=== PATIENT | female | born 1925 | race African-American/Black ===

== ENCOUNTER 2017-04-23 22:40 | Inpatient (IN) | payer MEDICARE, OTHER ==
[~2017-04-23] VITALS: Ht 165.1 cm; Wt 61.2 kg
[2017-04-23] MEDS ORDERED: Aspirin Baby 81mg ORAL ONE (23:30)
[2017-04-23 23:39] LABS: BASOPHILS % (AUTO) 0.9 % (0.0-2.0); EOSINOPHILS % (AUTO) 1.3 % (0.0-3.0); HEMATOCRIT 39.3 % (37.0-47.0); HEMOGLOBIN 11.9 G/DL (12.0-16.0); LYMPHOCYTES % (AUTO) 21.7 % (20.0-45.0); MEAN CORPUSCULAR VOLUME 82 FL (80-99); MONOCYTES % (AUTO) 9.3 % (1.0-10.0); NEUTROPHILS % (AUTO) 66.7 % (45.0-75.0); PLATELET COUNT 294 K/UL (150-450); RED BLOOD COUNT 4.81 M/UL (4.20-5.40); RED CELL DISTRIBUTION WIDTH 12.6 % (11.6-14.8); WHITE BLOOD COUNT 7.2 K/UL (4.8-10.8)
[2017-04-23 23:56] LABS: ANION GAP 7 mmol/L (5-15); BLOOD UREA NITROGEN 21 mg/dL (7-18); CALCIUM 8.2 MG/DL (8.5-10.1); CARBON DIOXIDE 29 MMOL/L (21-32); CHLORIDE 104 MMOL/L (98-107); POTASSIUM 3.9 MMOL/L (3.5-5.1); SODIUM 139 MMOL/L (136-145)
[2017-04-24] VITALS (7 sets, daily range): BP systolic 114–140; BP diastolic 72–83
[2017-04-24 00:09] LABS: ALANINE AMINOTRANSFERASE 17 U/L (12-78); ALBUMIN 3.8 G/DL (3.4-5.0); ALBUMIN/GLOBULIN RATIO 1.1 (1.0-2.7); ALKALINE PHOSPHATASE 87 U/L (46-116); ASPARTATE AMINO TRANSFERASE 22 U/L (15-37); BILIRUBIN,TOTAL 0.4 MG/DL (0.2-1.0); CKMB 2.6 NG/ML (0.0-3.6); CREATINE KINASE 134 U/L (26-308)
--- NOTE | 2017-04-24 01:26 | Emergency Room Report ---
History of Present Illness General Chief Complaint: Chest Pain Source: Patient, Family Member Present Illness HPI This is an 89-year-old female with no past medical history. She presents with chief complaint of chest pain has been intermittent for the last 2 weeks. Mostly epigastric area. Lasting about 10 minutes. No nausea no vomiting. No diaphoresis. No exertional component. No radiation. She felt anxious with it. Denies any other complaint. No pain now. Allergies: Coded Allergies: No Known Allergies (Unverified , 04/23/17) Patient History Past Medical History: none, see triage record, old chart reviewed Past Surgical History: none Pertinent Family History: none Social History: Denies: smoking Last Menstrual Period: NA Now: No Immunizations: other Reviewed Nursing Documentation: PMH: Agreed, PSxH: Agreed Review of Systems Eye: Denies: eye pain, blurred vision ENT: Denies: ear pain, nose congestion, throat swelling Respiratory: Denies: cough, shortness of breath Cardiovascular: Reports: chest pain, Denies: palpitations Gastrointestinal: Denies: abdominal pain, diarrhea, nausea, vomiting Musculoskeletal: Denies: back pain, joint pain Skin: Denies: rash Neurological: Denies: headache, numbness Endocrine: Denies: increased thirst, increased urine Hematologic/Lymphatic: Denies: easy bruising All Other Systems: negative except mentioned in HPI Physical Exam Vital Signs Date Time Temp Pulse Resp B/P (MAP) Pulse Ox O2 Delivery O2 Flow Rate FiO2 04/23/17 22:43 97.9 84 18 191/98 98 Room Air diagnosed with high blood pressure Sp02 EP Interpretation: reviewed, normal General Appearance: well appearing, no apparent distress, alert Head: normocephalic, atraumatic Eyes: bilateral eye PERRL, bilateral eye EOMI ENT: hearing grossly normal, normal pharynx Neck: full range of motion, supple, no meningismus Respiratory: chest non-tender, lungs clear, normal breath sounds Cardiovascular #1: regular rate, rhythm, no murmur Gastrointestinal: normal bowel sounds, non tender, no mass, no organomegaly, no bruit, non-distended Musculoskeletal: back normal, gait/station normal, normal range of motion Psychiatric: mood/affect normal Skin: warm/dry Medical Decision Making Diagnostic Impression: Primary Impression: Chest pain Qualified Codes: R07.9 - Chest pain, unspecified Additional Impression: Hypertension Qualified Codes: I10 - Essential (primary) hypertension ER Course Patient presents with chest pain. Atypical in nature. She does have risk factor in her age and her blood pressure. She is asymptomatic here. Aspirin given. Will admit for further workup. I discussed the case with Dr. Whipple who will admit. Laboratory Tests Test 04/23/17 23:09 White Blood Count 7.2 K/UL (4.8-10.8) Red Blood Count 4.81 M/UL (4.20-5.40) Hemoglobin 11.9 G/DL (12.0-16.0) L Hematocrit 39.3 % (37.0-47.0) Mean Corpuscular Volume 82 FL (80-99) Mean Corpuscular Hemoglobin 24.7 PG (27.0-31.0) L Mean Corpuscular Hemoglobin Concent 30.2 G/DL (32.0-36.0) L Red Cell Distribution Width 12.6 % (11.6-14.8) Platelet Count 294 K/UL (150-450) Mean Platelet Volume 5.6 FL (6.5-10.1) L Neutrophils (%) (Auto) 66.7 % (45.0-75.0) Lymphocytes (%) (Auto) 21.7 % (20.0-45.0) Monocytes (%) (Auto) 9.3 % (1.0-10.0) Eosinophils (%) (Auto) 1.3 % (0.0-3.0) Basophils (%) (Auto) 0.9 % (0.0-2.0) Sodium Level 139 MMOL/L (136-145) Potassium Level 3.9 MMOL/L (3.5-5.1) Chloride Level 104 MMOL/L (98-107) Carbon Dioxide Level 29 MMOL/L (21-32) Anion Gap 7 mmol/L (5-15) Blood Urea Nitrogen 21 mg/dL (7-18) H Creatinine 1.0 MG/DL (0.55-1.30) Estimat Glomerular Filtration Rate mL/min (>60) Glucose Level 122 MG/DL (74-106) H Calcium Level 8.2 MG/DL (8.5-10.1) L Total Bilirubin 0.4 MG/DL (0.2-1.0) Aspartate Amino Transf (AST/SGOT) 22 U/L (15-37) Alanine Aminotransferase (ALT/SGPT) 17 U/L (12-78) Alkaline Phosphatase 87 U/L (46-116) Total Creatine Kinase 134 U/L (26-308) Creatine Kinase MB 2.6 NG/ML (0.0-3.6) Creatine Kinase MB Relative Index 1.9 Troponin I 0.000 ng/mL (0.000-0.056) Total Protein 7.4 G/DL (6.4-8.2) Albumin 3.8 G/DL (3.4-5.0) Globulin 3.6 g/dL Albumin/Globulin Ratio 1.1 (1.0-2.7) Lab Results Impression is normal EKG Diagnostic Results Rate: normal Rhythm: NSR ST Segments: other - RBBB ASA given to the pt in ED: Yes Rhythm Strip Diag. Results Rhythm Strip Time: 01:26 EP Interpretation: yes Rate: 75 Rhythm: NSR, no PVC's, no ectopy Chest X-Ray Diagnostic Results Chest X-Ray Diagnostic Results : Chest X-Ray Ordered: Yes # of Views/Limited/Complete: 1 View Indication: Chest Pain EP Interpretation: Yes Interpretation: no consolidation, no effusion, no pneumothorax, no acute cardiopulmonary disease Impression: No acute disease Electronically Signed by: Yandel Doshi MD Last Vital Signs Date Time Temp Pulse Resp B/P (MAP) Pulse Ox O2 Delivery O2 Flow Rate FiO2 04/24/17 01:06 97.9 73 16 134/75 100 Room Air Status: improved Disposition: ADMITTED INPATIENT Condition: Serious Referrals: NON PHYSICIAN (PCP) YANDEL DOSHI M.D. Apr 24, 2017 01:26
--- NOTE | 2017-04-24 10:15 | Diagnostic Imaging Report ---
Indication: Chest pain Technique: One view of the chest Comparison: none Findings: Lungs and pleural spaces are clear. Heart size is normal. The aorta is somewhat tortuous and ectatic Impression: No acute process
[2017-04-24] MEDS ORDERED: APRISO0.375 GM PO ×2 (10:41→17:29)
[2017-04-24] MEDS ORDERED: Zolpidem 5mg tab ORAL PRN (12:30)
[2017-04-24] MEDS ORDERED: Nitroglycerin 2% oint pkt TOPIC ONE (14:00)
--- NOTE | 2017-04-24 20:30 | History and Physical Report ---
DATE OF ADMISSION: 04/24/2017 REASON FOR ADMISSION: Chest pain, possible acute coronary syndrome. HISTORY OF PRESENT ILLNESS: This is an 89-year-old female, who is very pleasant. The patient presents with chief complaint of chest pain, which has been intermittent for the past 2 weeks. No radiation of pain. The pain is intermittent. No nausea or vomiting. No shortness of breath. The patient is also anxious at present. The patient, per review and discussion, has a clear history of underlying heart disease. The patient's findings discussed and reviewed with the ER physician, and the patient is being admitted for evaluation of possible acute coronary syndrome. PAST MEDICAL HISTORY: Essentially as above. MEDICATIONS: Reviewed. ALLERGIES: Reviewed. SOCIAL HISTORY: Nonsmoker and nondrinker. The patient is retired at present. FAMILY HISTORY: Otherwise noncontributory. REVIEW OF SYSTEMS: Otherwise negative with the exception of the above. PHYSICAL EXAMINATION: GENERAL: A well-developed female, comfortable, advanced age. VITAL SIGNS: O2 saturation 100% on room air, temperature 98.3, respiratory rate 12, and blood pressure 134/72. HEENT: Fairly negative. Extraocular movements are grossly intact. Oropharynx moist. NECK: Supple. No adenopathy. LUNGS: Clear breath sounds. No rhonchi or wheezes. CARDIAC: S1 and S2. Regular rate and rhythm. Soft systolic murmur. No rubs or gallops. ABDOMEN: Soft, nontender, and nondistended. No hepatosplenomegaly. EXTREMITIES: No cyanosis, clubbing, or edema. NEUROLOGIC: Grossly nonfocal. LABORATORY DATA: All reviewed. Electrolytes fairly normal. BUN 21 and creatinine is 1. White cell count 7.2, hemoglobin 11.9, hematocrit 39, and platelets 294. The patient's initial troponin is negative. The albumin is normal. IMPRESSION: 1. Advanced age. 2. Chest pain, possible acute coronary syndrome. 3. Probable electrolyte imbalance. 4. Minimal borderline anemia. RECOMMENDATION: Supportive care. Aspirin, subcutaneous heparin, nitrates, and serial troponin. Obtain physical therapy evaluation. evaluation and obtain Cardiology evaluation for clearance. Felipe Whipple M.D. DR: STORM JOB#: [id number] CC:
[2017-04-24] MEDS: Heparin 5000 units/ml inj SUBQ SCH (21:27)
[2017-04-25] VITALS: BP 142/69
[2017-04-25] MEDS ORDERED: Lexiscan 0.4mg/5ml syringe IV ONE ×2 (02:45→09:00)
[2017-04-25 04:00] VITALS: BP 107/55
[2017-04-25 05:05] LABS: CHOLESTEROL 222 MG/DL (< 200); HDL CHOLESTEROL 82 MG/DL (40-60); TRIGLYCERIDES 53 MG/DL (30-150)
[2017-04-25 05:40] LABS: ALANINE AMINOTRANSFERASE 13 U/L (12-78); ALBUMIN 3.2 G/DL (3.4-5.0); ALBUMIN/GLOBULIN RATIO 0.9 (1.0-2.7); ALKALINE PHOSPHATASE 76 U/L (46-116); ANION GAP 8 mmol/L (5-15); ASPARTATE AMINO TRANSFERASE 20 U/L (15-37); BILIRUBIN,TOTAL 0.4 MG/DL (0.2-1.0); BLOOD UREA NITROGEN 19 mg/dL (7-18); CALCIUM 7.8 MG/DL (8.5-10.1); CARBON DIOXIDE 24 MMOL/L (21-32); CHLORIDE 106 MMOL/L (98-107); CREATININE 0.9 MG/DL (0.55-1.30); POTASSIUM 4.3 MMOL/L (3.5-5.1); SODIUM 138 MMOL/L (136-145)
[2017-04-25 08:00] VITALS: BP 139/68
[2017-04-25] MEDS ORDERED: Aspirin Baby 81mg ORAL SCH (09:00)
[2017-04-25] MEDS: Heparin 5000 units/ml inj SUBQ SCH (11:57)
[2017-04-25 12:00] VITALS: BP 149/81
--- NOTE | 2017-04-25 12:21 | General Progress Note ---
Assessment/Plan Assessment/Plan chest pain negative stress test debility weakness PLAN dc home home pt resume home meds cleared by cardiology Subjective Allergies: Coded Allergies: No Known Allergies (Unverified , 04/23/17) Subjective care noted and reviewed stress negative Objective Last 24 Hour Vital Signs Date Time Temp Pulse Resp B/P (MAP) Pulse Ox O2 Delivery O2 Flow Rate FiO2 04/25/17 11:57 70 139/68 04/25/17 08:00 70 04/25/17 08:00 98.1 87 21 139/68 94 Room Air 04/25/17 04:00 80 04/25/17 04:00 98.4 95 20 107/55 94 Room Air 04/25/17 00:00 84 04/25/17 00:00 98.0 78 20 142/69 99 Room Air 04/24/17 20:00 86 04/24/17 20:00 98.4 75 20 135/78 98 Room Air 04/24/17 17:41 80 152/96 04/24/17 16:00 98.4 75 18 140/83 95 Room Air 04/24/17 16:00 69 04/24/17 14:07 114/73 04/24/17 12:48 99.5 88 18 114/73 100 Room Air Intake and Output 04/24/17 04/25/17 19:00 07:00 Intake Total 720 ml Output Total 75 ml Balance 720 ml -75 ml Intake Oral 720 ml Output Urine Total 75 ml # Voids 2 1 # Bowel Movements 1 Laboratory Tests 04/24/17 14:00: Troponin I 0.017 04/24/17 20:20: Troponin I 0.006 04/25/17 03:00: Troponin I 0.009, Sodium Level 138, Potassium Level 4.3, Chloride Level 106, Carbon Dioxide Level 24, Anion Gap 8, Blood Urea Nitrogen 19H, Creatinine 0.9, Estimat Glomerular Filtration Rate , Glucose Level 95, Calcium Level 7.8L, Total Bilirubin 0.4, Aspartate Amino Transf (AST/SGOT) 20, Alanine Aminotransferase (ALT/SGPT) 13, Alkaline Phosphatase 76, Total Protein 6.7, Albumin 3.2L, Globulin 3.5, Albumin/Globulin Ratio 0.9L, Triglycerides Level 53 , Cholesterol Level 222H, LDL Cholesterol 123H, HDL Cholesterol 82H, Cholesterol /HDL Ratio 2.7L, Thyroid Stimulating Hormone (TSH) 1.186 Height (Feet): 5 Height (Inches): 5.00 Weight (Pounds): 135 Objective WDWN NAD clear breath sounds bilaterally without rhonchi or wheeze [id number] without MRG NABS nontender no HSM no CCE nonfocal BRENDA WELLS Apr 25, 2017 12:21
--- NOTE | 2017-04-25 12:45 | Consultation ---
DATE OF CONSULTATION: 04/24/2017 CARDIOLOGY CONSULTATION CONSULTING PHYSICIAN: Munir Montana M.D. REQUESTING PHYSICIAN: Felipe Whipple M.D. REASON FOR CONSULT: Chest pain. HISTORY OF PRESENT ILLNESS: This is a pleasant [facility] female age 89 with no prior history of known coronary disease, but has had episodes of chest pain on exertion for a number of years. Occasionally episodes occur with stress. They are very short lived and would resolve with an aspirin or herbal medications. Last evening she had an episode that was quite more significant sustained and more intense and she came to the emergency room for evaluation. Upon arrival, she was given sublingual nitroglycerin until symptoms recovered. PAST MEDICAL HISTORY: Includes colitis. MEDICATIONS: Her medications prior to admission include mesalamine and occasional aspirin. SOCIAL HISTORY: Negative for smoking, alcohol, or substance abuse. FAMILY HISTORY: Noncontributory. ALLERGIES: None known. REVIEW OF SYSTEMS: A 10-point review of systems performed all systems negative other than noted above. PHYSICAL EXAMINATION: GENERAL: The patient is well developed, well nourished, in no distress. VITAL SIGNS: Blood pressure ranging from 114/73 to 152/96, heart rate 60 to 75, respiratory rate 18, and afebrile. HEENT: Normocephalic and atraumatic. Conjunctivae pink. Oropharynx clear. NECK: Supple. Jugular venous pressure normal. LUNGS: Clear. CARDIAC: Regular rhythm and rate. Normal S1 and S2 with no murmur, rub, or gallop. ABDOMEN: Soft, nontender. No guarding. No rebound. EXTREMITIES: No edema. NEUROLOGIC: Nonfocal 2+ distal pulses. DIAGNOSTIC AND LABORATORY DATA: EKG, sinus rhythm, no acute abnormalities. Chest x-ray, no acute process. Troponin negative. IMPRESSION: 1. Acute coronary syndrome. 2. History of colitis. PLAN: 1. Cardiac monitoring. 2. Antiplatelet therapy with aspirin. 3. Noninvasive assessment of coronary flow reserve to help guide long-term medical management. 4. Consider cardiac catheterization in the presence of left ventricular dysfunction with multi-vessel disease only. 5. Check lipid panel. Munir Montana M.D. DR: YANIRA JOB#: [id number] CC:
[2017-04-25] MEDS ORDERED: Tubing IV Secondary IV ONE (14:41)
[2017-04-25] MEDS ORDERED: D5NS 1000ml IV ONE (14:41)
--- NOTE | 2017-04-25 20:30 | Progress Note ---
DATE: 04/25/2017 CARDIOLOGY PROGRESS NOTE SUBJECTIVE: The patient is seen and evaluated. No chest pain. No shortness of breath. Troponin is negative. Blood pressure well controlled. Monitored rhythm sinus with right bundle-branch block. OBJECTIVE: NECK: Supple. LUNGS: Clear. CHEST: Chest wall without tenderness. CARDIAC: Regular rhythm and rate. Normal S1 and S2 with a fourth heart sound. ABDOMEN: Soft and nontender. EXTREMITIES: No edema. LABORATORY AND DIAGNOSTIC DATA: Dobutamine stress test was performed by [place] and results revealed normal ejection fraction at rest and stress with augmentation of all oquendo, low likelihood for any flow-limiting coronary artery disease. IMPRESSION: 1. Anginal syndrome. 2. Microvascular coronary artery disease. 3. Generalized atherosclerosis. 4. Right bundle-branch block of no clinical significance. 5. History of colitis. PLAN: 1. Stable for outpatient followup. 2. No additional cardiovascular therapy or interventions indicated. 3. Maintain aspirin prophylaxis. 4. Outpatient Cardiology followup offered. Munir Montana M.D. DR: JERSON JOB#: [id number] CC:
--- NOTE | 2017-04-29 08:55 | Discharge Summary ---
Discharge Summary Hospital Course Date of Admission Apr 24, 2017 at 00:05 Date of Discharge Apr 25, 2017 at 14:42 Admitting Diagnosis CHEST PAIN HPI Tatyana Milligan is a 89 year old female who was admitted on Apr 24, 2017 at 00:05 for Chest Pain Hospital Course dc summary #[id number] Discharge Discharge Disposition Patient was discharged to Home with Home Health(06) Discharge Diagnoses: Discharge Instructions Discharge Instructions Special Instructions I have been assigned to complete a D/C Summary on this account. I was not involved in the patient management Ml Powers NP (Vanchtein) Apr 29, 2017 08:55
--- NOTE | 2017-04-30 | Discharge Summary 2 SIG ---
DATE OF ADMISSION: 04/24/2017 DATE OF DISCHARGE: 04/25/2017 REASON FOR ADMISSION: 89-year-old female with history of colitis, presented with chest pain for 2 weeks, which she described as intermittent with no radiation, lasting about 10 minutes, and mainly located in the epigastric area. The patient denied nausea, vomiting, shortness of breath, and diaphoresis. The patient felt anxious about pain Upon evaluation in the emergency department, blood pressure was elevated at 192/98. Pulse oximetry was stable on room air. Troponin negative. EKG revealed normal sinus rhythm with right bundle-branch block. The patient was admitted with chest pain, possible acute coronary syndrome and hypertension. HOSPITAL COURSE: The patient was admitted to telemetry floor. Cardiology consult was requested. Serial troponin were negative. Telemetry showed no evidence of ischemic changes. Therefore, the patient was ruled out for acute TN. According to parking lot attendant, who closely followed, the patient had anginal syndrome. Supportive care was provided. The patient was started on antiplatelet therapy with aspirin. DVT prophylaxis with heparin was provided. Nitrates started. The patient was working with Physical Therapy. Lipid panel revealed elevated total cholesterol and elevated LDL. The patient was educated on lifestyle therapeutic changes. The patient likely will need a statin. Echo stress test was negative. Outpatient followup with parking lot attendant. According to parking lot attendant, right bundle-branch block which was seen on the EKG had no clinical significance. Loss Prevention Detective cleared the patient for discharge. Due to the rapid and unexpected improvement in patient's condition, the patient was discharged in one day. FINAL DIAGNOSES: 1. Chest pain secondary to anginal syndrome. 2. Microvascular coronary artery disease. 3. Generalized atherosclerosis. 4. Right bundle-branch block with no clinical significance. 5. History of colitis. 6. Hypertension. DISCHARGE MEDICATIONS: See medication reconciliation list DISCHARGE INSTRUCTIONS: The patient was discharged home with home health services. Felipe Whipple M.D. I have been assigned to dictate discharge summary on this account and I was not involved in the patient's management. Ml JosueRosa Maria carolina DR: GORDON JOB#: [id number] CC: [email or web address]
--- NOTE | 2017-05-06 00:08 | Cardiology Report ---
APPROVED REPORT EKG Measurement Heart [id number] Normal sinus rhythm Right bundle branch block Left anterior fascicular block Bifascicular block Abnormal ECG
--- NOTE | 2017-05-06 00:19 | Cardiology Report ---
APPROVED REPORT EKG Measurement Heart [id number] Normal sinus rhythm Possible Left atrial enlargement Left axis deviation Right bundle branch block Abnormal ECG
== END 2017-04-25 14:42 | disposition home health service (06) | DRG 303 ==
LOC: EMR 23:20 → 2W 04-24 00:05 → EDBEDREQ 04-24 10:23 → 2W 04-24 12:28
DX: I25.119 Atherosclerotic heart disease of native coronary artery with unspecified angina pectoris (principal); I45.10 Unspecified right bundle-branch block; I10 Essential (primary) hypertension; I70.91 Generalized atherosclerosis; R53.1 Weakness
CPT/HCPCS: 36415; 71010; 80053; 80061; 82550; 82553; 84443; 84484; 85025; 93005; 93017; 93350; 99285; J2785